=== PATIENT | female | born 1970 | race Caucasian/White ===

== ENCOUNTER → 2019-02-07 | Outpatient (CLI) | payer BC ==
--- NOTE | 2019-02-08 10:29 | KCIC ---
Examination: CERVICAL SPINE 2-3V History: Neck pain with flexion and extension after trauma. Comparison/Correlation: None Findings: Frontal, lateral, and odontoid views of the cervical spine were obtained. Alignment normal. Vertebral body heights are adequate. Mild facet joint degenerative changes of the mid to lower cervical spine noted. Bony density is present at C5 vertebral body anteriorly at the inferior endplate. Mild soft tissue swelling at this site is suspected. Impression: Bony density at the anterior aspect of the C5 inferior endplate. This raises question of avulsion fracture injury or possibly a limbus vertebra. Mild soft tissue swelling is questioned at site. Consider further imaging evaluation with MRI if able for more definitive assessment. Dr. Garland was informed on 02/06/2019 at 10:25 AM. Electronically signed by: Grupo Queen MD (02/08/2019 10:26 AM) [facility]
== END | disposition home or self-care (01) ==
LOC: KCIC 14:13
PROVIDERS: ATTEND Chiropractor
DX: M53.1 Cervicobrachial syndrome (principal)
CPT/HCPCS: 72040